=== PATIENT | male | born 1995 | race Caucasian/White ===

== ENCOUNTER → 2017-08-06 | Outpatient (CLI) | payer BC ==
[~2017-08-06] VITALS: Ht 185.4 cm; Wt 88.6 kg
[~2017-08-06] MED LIST: EFFER-K 25 MEQ25 MEQ PO
[2017-08-06 16:03] VITALS: BP 119/65
[2017-08-06 17:24] VITALS: BP 109/57
== END ==
LOC: AMSURD 15:38
DX: R11.2 Nausea with vomiting, unspecified (principal)
CPT/HCPCS: J2405; J7030